=== PATIENT | male | born 2000 | race Caucasian/White ===

== ENCOUNTER 2022-10-01 10:08 | Emergency (ER) | payer BC, SELFPAY ==
--- NOTE | ~2022-10-01 | XR_ITS ---
EXAMINATION: XR LUMBOSACRAL SPINE CLINICAL INFORMATION: Lower back pain status post injury. COMPARISON: None available. TECHNIQUE: Three views of the lumbosacral spine. FINDINGS: There are 5 nonrib-bearing lumbar vertebral bodies. There is slight leftward curvature at the lumbosacral junction. Straightening of the lumbar lordosis on the sagittal view. Vertebral body heights and intervertebral disc spaces are maintained. Sacroiliac joints are intact. XR/XR lumbar spine 2-3V IMPRESSION: No acute abnormality.
[2022-10-01 10:12] VITALS: BP 125/68; PULSE 56; RESP 18; TEMP 37; O2SAT 98; BMI 23.8
--- NOTE | 2022-10-01 10:18 | PC.NURSE ---
ambulated to room from triage with strong steady gait, parents at bedside
--- NOTE | 2022-10-01 10:47 | ED_ITS ---
HPI - Back Pain/Injury General Chief Complaint: Back Pain/Injury Stated Complaint: back pain/injury Time Seen by Provider: 10/01/22 10:17 Source: patient and family (parents in room, mother and father) Mode of arrival: ambulatory Limitations: no limitations History of Present Illness HPI Narrative: 22 year old male without significant medical history presents with lower back pain x1 day. Patient states that he slipped on ice and injured his back in March of 2022. He was evaluated and patient reports that there was no fractures or dislocations at that time. This morning while at work the patient heard a crack and is now experiencing lower back pain. Denies saddles paresthesias, fevers, chills, urinary/bowel incontinence. Location: lumbar spine Related Data Previous Rx's Medication Instructions Recorded cyclobenzaprine 10 mg tablet 10 mg PO BEDTIME PRN muscle spasm 10/01/22 #7 tabs ketorolac 10 mg tablet 10 mg PO TID PRN pain 5 days #15 10/01/22 tabs lidocaine 5 % topical patch 1 patch topical DAILY PRN pain #15 10/01/22 ea Allergies Allergy/AdvReac Type Severity Reaction Status Date / Time No Known Allergies Allergy Verified 10/01/22 10:15 Review of Systems Review of Systems: Constitutional : No Weight loss, No Fever, No Chills, ENT/Mouth : No Hearing loss, No Ear Pain, No Nasal Congestion, No Sinus Pain, No Hoarseness, No sore throat, No Rhinorrhea, No Swallowing Difficulty Cardiovascular : No Chest Pain, No SOB Respiratory : No Cough, No Dyspnea Gastrointestinal : No Nausea, No Vomiting, No Diarrhea, No abdominal Pain, No Hematochezia, No Melena Genitourinary : No Dysuria, No Urinary Frequency, No Hematuria, No Urinary Incontinence, Musculoskeletal : positive back pain Skin : No Skin Lesions, No rash Neuro : No Weakness, No Numbness, No Paresthesias, no loss of bowel or bladder incontinence, no saddle anesthesia Yes all other systems are reviewed and are negative [facility] Past Medical History Attestation statement: The following information was validated with the patient. Source: old records reviewed and nursing notes reviewed Social History Social History Advance Directives: No Physical Exam Vital Signs: Vital Signs: Last Vital Signs Temp 98.6 F 10/01/22 10:12 Pulse 56 10/01/22 10:12 Resp 18 10/01/22 10:12 BP 125/68 10/01/22 10:12 Pulse Ox 98 10/01/22 10:12 O2 Del Method Room Air 10/01/22 10:12 BMI result Body Mass Index 23.8 Vital signs stable. Appearance: Alert.? Oriented X3.? No acute distress.? Head: Normocephalic, atraumatic, no step-offs or deformities Eyes: Pupils equal, round and reactive to light.? CVS: Normal heart rate and rhythm.? Pulses normal.? Respiratory: No respiratory distress.? Breath sounds normal.? Abdomen: Soft and nontender.? Skin: Skin warm and dry.? Normal skin color.? Normal skin turgor.? Extremities: No lower extremity edema.? No calf ttp. 5/5 strength to bilateral upper and lower extremities Back: No midline tenderness, no C-spine tenderness, full range of motion, no CVA tenderness bilaterally + b/l L1-L3 paraspinous tenderness Neuro: Oriented X 3.? No motor deficit.? No sensory deficit. CN 2-12 intact No saddle paresthesias, ambulatory with steady gait, normal coordination Course Reevaluation(s) Reevaluation #1: x-ray unremarkable. Patient ambulating with steady gait normal coordination. Reports significant improvement after Toradol. We are currently in a down time, unable to print patient's discharge paperwork, I did go over paperwork with him and I did hand write a school note for 5 days, patient can return on 10/06/2022 advised him to follow-up with a private physician within the Next week. Educated patient on diagnosis and treatment plan, answered all question, patient verbalizes understanding. At this time patient will be discharged home, advised to return with new or worsening symptoms. Educated on worrisome signs and symptoms and when to return. At this time I feel comfortable discharge home. I did encourage him to open up and the patient portal to review x-ray results if needed. Time: 12:00 Medications Administered Discontinued Medications Generic Name Dose Route Start Last Admin Trade Name Freq PRN Reason Stop Dose Admin Ketorolac Tromethamine 30 mg 10/01/22 10:47 10/01/22 10:56 Ketorolac Tromethamine 15 Mg/Ml Vial IM 10/01/22 10:48 30 mg ONCE ONE Administration Lidocaine 2 patch 10/01/22 10:47 10/01/22 10:56 Lidocaine 4 % Patch Adh..Patch TRANSDERMA 10/01/22 10:48 2 patch ONCE ONE Administration Protocol Medical Decision Making Medical Decision Making [facility] Narrative: 10:50 22 year old male presents with back pain x1 day, no red flag symptoms. Physical exam significant for + b/l L1-L3 paraspinous tenderness, no focal neuro defecits. This is likely lumbar paraspinous muscle spasms vs lumbago, sprain or strain, herniated disk. Unlikely cauda equina, epidural abscess, cord compression, fracture or dislocation. Plan: meds and imaging Differential Diagnosis Differential Diagnoses: The differential diagnosis associated with the presentation includes This is likely lumbar paraspinous muscle spasms vs lumbago, sprain or strain, herniated disk. Unlikely cauda equina, epidural abscess, cord compression, fracture or dislocation. Admission/Observation Consideration of admission/observation: Escalation of care including admission/observation considered Not indicated. Independent Interpretation I performed an independent interpretation of an: Plain X-Ray Radiology Impression Discussion of test interpretation with radiology: I have reviewed the radiologist's reading. Prescription Management I considered prescription management with: Pain Medication Core Measures AMI core measures followed: Yes Measure exclusions: not indicated Critical Care Time Critical Care Time Critical Care Time: No Discharge Plan Discharge Clinical Impression: Lumbar paraspinal muscle spasm Patient Disposition: Home, Self-Care Instructions: Muscle Spasm (ED), Back Pain (ED), Heat Pack Application (ED) Additional Instructions: Take your medications as prescribed. If you were prescribed antibiotics today, it is important that you take your medication to their entirety, do not skip any doses, do not finish them early. Follow-up with your primary care provider this week. Return to the emergency department with new or worsening symptoms. Such as fevers, chills, chest pain, shortness of breath, nausea, vomiting, dizziness, headache, vision changes, lethargy In case of emergency call 911 Toradol has been sent to your pharmacy, you tolerated this well in the department. Please take this as prescribed do not take this with ibuprofen, or other NSAIDs, do not mix this with alcohol. Side effects of this medication including increased risk for bleeding and possible kidney injury. XR/XR lumbar spine 2-3V IMPRESSION: No acute abnormality. Prescriptions: New cyclobenzaprine 10 mg tablet 10 mg PO BEDTIME PRN (Reason: muscle spasm) Qty: 7 0RF ketorolac 10 mg tablet 10 mg PO TID PRN (Reason: pain) 5 Days Qty: 15 0RF lidocaine 5 % adhesive patch,medicated 1 patch topical DAILY PRN (Reason: pain) Qty: 15 0RF Rx Instructions: leave on most painful area for up to 12 hrs Referrals: [facility] [Provider Group] - 1 week Stand Alone Forms: Work/School Release
[2022-10-01] MEDS: Ketorolac Tromethamine 15 MG/ML VIAL 30 MG IM (10:56)
[2022-10-01] MEDS: Lidocaine 4 % Patch ADH..PATCH 2 PATCH TRANSDERMA (10:56)
== END 2022-10-01 12:04 | disposition home or self-care (01) ==
PROVIDERS: Emergency Provider Student in an Organized Health Care Education/Training Program; PCP Pediatrics
DX: M62.830 Muscle spasm of back (principal); M54.50 Low back pain, unspecified
CPT/HCPCS: 72100; 96372; 99283; 99284; J1885